=== PATIENT | male | born 1995 | race Caucasian/White ===

== ENCOUNTER 2018-06-30 14:51 | Emergency (ER) | payer OTHER ==
[2018-06-30 14:56] VITALS: BP 117/74
[2018-06-30] MEDS ORDERED: TDAP ADULT 0.5 ML INJ (BOOSTRIX) IM ONE ×2 (14:57→15:22)
--- NOTE | 2018-06-30 15:00 | EDPHY ---
H & P Stated Complaint: cut r calf on metal pipe Source: Patient Exam Limitations: No limitations - Personal History Current Tetanus Diphtheria and Acellular Pertussis (TDAP): Unsure Tetanus Vaccine Date: unsure - Medical/Surgical History Hx Asthma: No Hx Chronic Respiratory Disease: No Hx Diabetes: No Hx Cardiac Disease: No Hx Renal Disease: No Hx Cirrhosis: No Hx Alcoholism: No Hx HIV/AIDS: No Hx Splenectomy or Spleen Trauma: No Other PMH: appy - Social History Smoking Status: Never smoked Time Seen by Provider: 06/30/18 14:57 HPI/ROS: HPI: This is a 23-year-old male who presents with Chief Complaint: cut r calf on metal pipe Location: Right calf Quality: Cut on metal pipe Duration: Prior to arrival Signs and Symptoms: No bleeding, no radiation, no numbness, no weakness, no tingling, no incontinence, no decreased range of motion, no swelling, no pain, no fever Timing: Acute Severity: Mild Context: Patient reports that he was walking outside of a dispensary and accidentally slipped on the ice and cutting his right outer calf on a metal pipe that was outside of the building. He reports that his car go pant leg was ripped by the pipe. He reports that he felt mild nonradiating pain but none at this time. He is unsure of his tetanus status. Denies radiation, weakness, decreased range of motion. Modifying Factors: No local wound care provided Comment: ROS: A comprehensive 10 system review of systems is otherwise negative aside from elements mentioned in the history of present illness. MEDICAL/SURGICAL/SOCIAL HISTORY: Medical history: Generally healthy. Does not take any regular medications. Surgical history: Appendectomy Social history: Marijuana user. Denies tobacco use. CONSTITUTIONAL: Well-developed, well-nourished young adult white male, awake and alert, no obvious distress HEENT: Atraumatic and normocephalic. NECK: supple, no midline tenderness Cardiovascular: Normal S1/S2, regular rate, regular rhythm, without murmur rub or gallop. PULMONARY/CHEST: Symmetrical and nontender. no crepitus. Clear to auscultation bilaterally. Good air movement. No accessory muscle usage. ABDOMEN: Soft, nondistended, nontender, no ecchymosis. EXTREMITIES: 2/2 pulses, strength 5/5, right calf shows superficial 1.5 inch abrasion, horizontal, no active bleeding. good light touch sensation. no deformities, no clubbing, no cyanosis or edema. NEUROLOGICAL: no focal neuro deficits. GCS 15. Light touch sensation intact. SKIN: Warm and dry, no erythema. no rash. Good capillary refill. (Era Thomas) Constitutional: Initial Vital Signs Temperature (C) 36.9 C 06/30/18 14:53 Heart Rate 50 L 06/30/18 14:53 Respiratory Rate 17 06/30/18 14:53 Blood Pressure 117/74 06/30/18 14:53 O2 Sat (%) 99 06/30/18 14:53 O2 Delivery Mode Room Air Allergies/Adverse Reactions: No Known Allergies Allergy (Verified 06/30/18 14:52) Home Medications: Medication Instructions Recorded NK [No Known Home Meds] 06/30/18 Medical Decision Making ED Course/Re-evaluation: Tetanus booster ordered Cleaned with soap and water, bacitracin, clean sterile dressing applied Indication for sutures. Verbal and written wound care instructions provided. No signs of neurovascular compromise/tenting of skin/compartment syndrome/ extremities and joints examined above and below area of concern and are neurovascularly intact. This patient was seen under the supervision of my secondary supervising physician. I evaluated care for this patient independently. Discussed this patient with Dr. Ramirez who did not see the patient. (Era Thomas) I did not see this patient while he was in the emergency department. However his care was discussed with the PA while the patient was in the department. I agree with treatment plan and management (Uriel Ramirez) Differential Diagnosis: Differential diagnosis includes but is not limited to abrasion, contusion, laceration, nerve injury, ligament injury, tendon injury. (Era Thomas) - Data Points Medications Given: Discontinued Medications Diphtheria/Tetanus/Acell Pertussis (Boostrix) 0.5 ml IM .ONCE ONE Stop: 06/30/18 14:58 Last Admin: 06/30/18 15:19 Dose: 0.5 ml Departure - Departure Disposition: Home, Routine, Self-Care Clinical Impression: Abrasion of right calf Qualifiers: Encounter type: initial encounter Qualified Code(s): S80.811A - Abrasion, right lower leg, initial encounter Condition: Good Instructions: Abrasion (ED) Additional Instructions: Keep the dressing dry and in place for 48 hours. After 48 hours, you may remove the dressing; wash the site daily with mild soap and water; then pat dry and apply topical antibiotic ointment daily until fully healed. Take Tylenol 650 mg every 4 hours and/or Ibuprofen 600 mg every 8 hours with food as needed for pain. Apply ice for 30 minutes at a time; 2-3 times per day for the next 1-2 days. Return to the ER immediately if you experience redness, red streaks, have fevers /chills, flu like symptoms, limited range of motion, or any other symptoms that concern you. Referrals: [facility],. [Clinic] - As per Instructions
== END 2018-06-30 15:23 | disposition home or self-care (01) ==
DX: S80.811A Abrasion, right lower leg, initial encounter (principal); W00.0XXA Fall on same level due to ice and snow, initial encounter; Y92.481 Parking lot as the place of occurrence of the external cause; Z23 Encounter for immunization